=== PATIENT | male | born 1970 | race Two or more races ===

== ENCOUNTER 2020-01-02 16:47 | Emergency (ER) | payer MEDICARE ==
[~2020-01-02] VITALS: Ht 175.3 cm; Wt 82.7 kg
[2020-01-02 20:43] LABS: COVID AG,FIA SOURCE NASAL SWAB
[2020-01-02 21:07] VITALS: BP 132/72
[2020-01-02 21:09] LABS: INFLUENZA TYPE A NEGATIVE FOR TYPE A (NEGATIVE); INFLUENZA TYPE B NEGATIVE FOR TYPE B (NEGATIVE)
== END 2020-01-02 21:15 | disposition home or self-care (01) ==
LOC: EMS 16:47
DX: J40 Bronchitis, not specified as acute or chronic (principal); F17.210 Nicotine dependence, cigarettes, uncomplicated; Z20.828 Contact with and (suspected) exposure to other viral communicable diseases
CPT/HCPCS: 87426; 87804; 71045-TC

== ENCOUNTER 2020-01-16 14:14 | Emergency (ER) | payer MEDICARE, MEDICAID ==
[~2020-01-16] VITALS: Ht 175.3 cm; Wt 80.5 kg
[2020-01-16 16:29] VITALS: BP 139/79
== END 2020-01-16 16:38 | disposition home or self-care (01) ==
LOC: EMS 14:18
DX: R32 Unspecified urinary incontinence (principal); F17.210 Nicotine dependence, cigarettes, uncomplicated
CPT/HCPCS: Z7502